=== PATIENT | female | born 1990 | race Caucasian/White ===

== ENCOUNTER 2018-10-25 19:44 | Emergency (ER) | payer OTHER ==
[2018-10-25 19:49] VITALS: BP 112/77
[2018-10-25] MEDS ORDERED: RALT400T6 PO (20:14)
[2018-10-25] MEDS ORDERED: TRUPT PO (20:14)
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
[2018-10-25 20:27] LABS: PLATELET COUNT, AUTOMATED 231 K/uL (150-450)
== END 2018-10-25 20:51 | disposition home or self-care (01) ==
LOC: ER 19:52
DX: Z77.21 Contact with and (suspected) exposure to potentially hazardous body fluids (principal)
CPT/HCPCS: 36415; 82040; 82247; 82310; 82374; 82435; 82565; 82947; 84075; 84132; 84155; 84295; 84450; 84460; 84520; 84703; 85025; 86703; 86706; 86803; 87340; 99282